=== PATIENT | male | born 1975 | race Caucasian/White ===

== ENCOUNTER 2018-05-14 09:43 | Day surgery (SDC) | payer BC ==
[2018-05-07 11:19] VITALS: BMI 26.4
[2018-05-14] MEDS ORDERED: PROPOFOL 20 ML ONE ×2 (10:44)
[2018-05-14 11:44] VITALS: BP 118/72; PULSE 74; TEMP 97.9
== END 2018-05-14 11:45 | disposition home or self-care (01) ==
LOC: FASU-ENDO 09:43
PROVIDERS: ATTEND Internal Medicine Gastroenterology
PROC: 0DJD8ZZ Inspection of Lower Intestinal Tract, Via Natural or Artificial Opening Endoscopic (ICD-10-PCS; principal; 2018-05-14 10:42)
DX: Z12.11 Encounter for screening for malignant neoplasm of colon (principal); Z80.0 Family history of malignant neoplasm of digestive organs; K64.8 Other hemorrhoids